=== PATIENT | female | born 2000 | race Caucasian/White ===

== ENCOUNTER 2020-05-17 18:09 | Emergency (ER) | payer OTHER, SELFPAY ==
[2020-05-17 18:19] VITALS: BP 136/81; PULSE 71; RESP 16; TEMP 36.9; O2SAT 98; BMI 25.9
--- NOTE | 2020-05-17 18:43 | DI.US.S_ITS ---
PROCEDURE: US OB <= 14 WEEKS FETUS INDICATIONS: 6 weeks OUTSIDE/PRIOR DATING DATA: First dating scan (date and location): 05/17/20, current study . Estimated date of delivery (TOMAS) from first dating scan: 01/07/21 . TECHNIQUE: Real-time scanning was performed of the fetus and maternal pelvic organs, with image documentation. COMPARISON: None. FINDINGS: Embryo: An intrauterine is present including a single pole with an average crown-rump length of 6.1 mm corresponding to a six week three day plus or minus four days gestation. There is detectable cardiac activity in the fetus at a rate of 109 beats per minute. A normal yolk sac is present. Measurement variability in dating: +/- 4 weeks by LMP, +/- 7 days by mean sac diameter (use before 6 weeks gestation if crown-rump length not able to be measured), +/- 5 days by crown-rump length (up to 8 weeks 6 days gestation), +/- 7 days by crown-rump length (up to 13 weeks 6 days gestation). Maternal organs: The uterus is anteverted and the cervix is grossly closed. There is an intrauterine gestational sac with a moderate decidual response. No subchorionic hemorrhage is visible. There is a probable corpus luteum on the left ovary. No free pelvic fluid. IMPRESSION: 1. Single live intrauterine with a gestational age by today's crown-rump length of six weeks, three days, and estimated due date of 01/07/21. 2. Slightly low heart rate is likely secondary to early gestational age. Clinical and possibly imaging follow up to confirm viability is recommended. Dictated by: Stephanie Meredith M.D. on 05/17/2020 at 22:12 Approved by: Stephanie Meredith M.D. on 05/17/2020 at 22:16
--- NOTE | 2020-05-17 19:39 | ED.PREGNANCY ---
HPI - General Chief complaint: OB/Uterine Contractions Stated complaint: 6wks , bleeding and cramping Time Seen by Provider: 05/17/20 18:43 Source: patient Mode of arrival: Ambulatory Limitations: no limitations History of Present Illness HPI Narrative: Patient is a 19-year-old female presenting about 6 weeks with vaginal bleeding and spotting. She said just prior to her arrival she went to the restroom and wipes twice a noticed some pink spotting. In the emergency department she had a little bit more bleeding and some cramping. She has been nauseated in taking vitamin B. She has not yet been seen by OB. She denies any dizziness or lightheadedness. She states she and her were trying and this is a welcomed . Last menstrual period April 04 2020 Complaint: vaginal bleeding Onset (ago): hour(s) Related Data Allergies Allergy/AdvReac Type Severity Reaction Status Date / Time Sulfa (Sulfonamide Allergy Verified 05/17/20 18:19 Antibiotics) Review of Systems Review of Systems Narrative: GENERAL: Denies chills, fatigue, malaise, fever, sweats, travel HEENT: Denies sinus pain, ear pain, sore throat, difficulty swallowing, neck pain RESPIRATORY: Denies dyspnea, cough, wheezing, hemoptysis, sputum. CARDIOVASCULAR: Denies chest pain, palpitations, orthopnea, edema GASTROINTESTINAL: Denies nausea, vomiting, abdominal pain, diarrhea, constipation, melena. [employer] WORKER: See HPI : Denies dysuria, frequency, incontinence, hematuria, urinary retention, flank pain. MUSCULOSKELETAL: Denies weakness, joint pain, or bony pain SKIN: No rash, no erythema, no pruritus NEUROLOGIC: Denies weakness, dizziness, headache, numbness, change in speech, confusion PSYCHIATRIC: No concerning psychosocial issues. 12 point review of systems is negative except for those stated above and HPI PMFSH - Past Medical History Medical history: Reports no medical history Surgical history: Reports no surgical history SENIOR IOS DEVELOPER history: Reports No SENIOR IOS DEVELOPER History Exam Initial Vital Signs Initial Vital Signs: Vital Signs Temperature 98.5 F 05/17/20 18:19 Pulse Rate 71 05/17/20 18:19 Respiratory Rate 16 05/17/20 18:19 Blood Pressure 136/81 05/17/20 18:19 Pulse Oximetry 98 02/11/21 18:19 GENERAL: Well-appearing, well-nourished and in no acute distress. HEENT: Head atraumatic,EOMI, pupils reactive, face symmetric, moist mucous membranes CARDIOVASCULAR: Regular rate and rhythm without murmurs, rubs or gallops. RESPIRATORY: Breath sounds equal bilaterally, no wheezes rales or rhonchi. ABDOMEN: Soft, minimal suprapubic pain Normoactive bowel sounds all 4 quadrants. No guarding or rebound. EXTREMITIES: Normal range of motion, no clubbing or edema. Neurovascularly intact NEUROLOGICAL: Alert and oriented x4.Normal gait and speech. Cranial nerves II through XII grossly intact. SKIN: Warm, dry, no laceration, no petechiae, no rashes or lesions. Course Orders Ordered: ED Orders 05/17/20 18:43 US pelvic complete Stat 05/17/20 19:45 ABO RH Type Stat Complete Blood Count AUTO DIFF Stat Comprehensive Metabolic Panel Stat HCG Quantitative /Beta subunit Stat Discontinued Medications Acetaminophen (Acetaminophen 325 Mg Tablet) 975 mg PO NOW ONE Stop: 05/17/20 19:45 Last Admin: 05/17/20 19:49 Dose: 975 mg Documented by: [facility] Vital Signs Vital signs: Vital Signs - 8 hr 05/17/20 18:19 05/17/20 21:58 Temperature 98.5 F Pulse Rate 71 59 L Respiratory Rate 16 Blood Pressure 136/81 127/78 Pulse Oximetry 98 99 MDM - OB/Uterine Contractions Lab Data Attestation: I reviewed the patient's lab results. Result diagrams: 05/17/20 19:45 05/17/20 19:45 Labs: Lab Results 05/17/20 05/17/20 05/17/20 Range/Units 19:45 19:45 19:45 WBC 10.0 (4.5-11.0) X10^3/uL RBC 4.97 (4.0-5.2) X10^6/uL Hgb 13.5 (12.0-16.0) g/dL Hct 41.9 (36-46) % MCV 84.4 (80-100) fL MCH 27.2 (26-34) PG MCHC 32.2 (30-36) % RDW 13.4 (11.6-14.8) % Plt Count 273 (150-400) X10^3/uL Neut % (Auto) 65.7 (50-75) % Lymph % (Auto) 22.5 L (25-40) % [place] % (Auto) 8.6 (3-14) % Eos % (Auto) 2.7 (2-4) % Baso % (Auto) 0.5 (0-2) % Neut # (Auto) 6600 (5697-7099) /uL Lymph # (Auto) 2300 (4846-4427) /uL [place] # (Auto) 900 (0-900) /uL Eos # (Auto) 300 (0-450) /uL Baso # (Auto) 100 (0-100) /uL Sodium 136 L (137-145) mmol/L Potassium 4.1 (3.4-5.1) mmol/L Chloride 102 (98-107) mmol/L Carbon Dioxide 28 (22-32) mmol/L BUN 7 (7-17) mg/dL Creatinine 0.48 L (0.52-1.04) mg/dL Estimated GFR > 60.0 (>60) mL/min BUN/Creatinine Ratio 14.6 (6-22) Glucose 85 (70-100) mg/dL Calcium 9.5 (8.4-10.2) mg/dL Total Bilirubin 0.4 (0.2-1.3) mg/dL AST 35 (14-36) IU/L ALT 49 H (<35) IU/L Alkaline Phosphatase 54 (38-126) U/L Total Protein 8.0 (6.3-8.2) g/dL Albumin 4.7 (3.5-5.0) g/dL Globulin 3.3 (1.7-4.1) g/dL Albumin/Globulin Ratio 1.4 (1.0-2.8) HCG, Quant 71575 mIU/mL Blood Type O Positive Point of Care Testing Test Results Positive Urine Dip Bedside Urine Glucose Negative Bedside Urine Bilirubin - Negative Bedside Urine Ketone - Negative Urine Specific [place] 1.015 Bedside Urine Occult Blood ++ Bedside Urine pH 6.0 Bedside Urine Protein - Negative Bedside Urine Urobilinogen - Negative Bedside Urine Nitrite - Negative Bedside Urine Leukocytes - Negative Esterase Imaging Data US - OB: Radiologist's Impression: PROCEDURE: US OB <= 14 WEEKS FETUS INDICATIONS: 6 weeks OUTSIDE/PRIOR DATING DATA: First dating scan (date and location): 05/17/20, current study . Estimated date of delivery (TOMAS) from first dating scan: 01/07/21 . TECHNIQUE: Real-time scanning was performed of the fetus and maternal pelvic organs, with image documentation. COMPARISON: None. FINDINGS: Embryo: An intrauterine is present including a single pole with an average crown-rump length of 6.1 mm corresponding to a six week three day plus or minus four days gestation. There is detectable cardiac activity in the fetus at a rate of 109 beats per minute. A normal yolk sac is present. Measurement variability in dating: +/- 4 weeks by LMP, +/- 7 days by mean sac diameter (use before 6 weeks gestation if crown-rump length not able to be measured), +/- 5 days by crown-rump length (up to 8 weeks 6 days gestation), +/- 7 days by crown-rump length (up to 13 weeks 6 days gestation). Maternal organs: The uterus is anteverted and the cervix is grossly closed. There is an intrauterine gestational sac with a moderate decidual response. No subchorionic hemorrhage is visible. There is a probable corpus luteum on the left ovary. No free pelvic fluid. IMPRESSION: 1. Single live intrauterine with a gestational age by today's crown-rump length of six weeks, three days, and estimated due date of 01/07/21. 2. Slightly low heart rate is likely secondary to early gestational age. Clinical and possibly imaging follow up to confirm viability is recommended. Dictated by: Stephanie Meredith M.D. on 05/17/2020 at 22:12 Approved by: Stephanie Meredith M.D. on 05/17/2020 at 22:16 [facility] Narrative Medical decision making narrative: Patient is having some mild cramping giving Tylenol for pain. She had some light bleeding and spotting which nursing saw while in the ED. She had a very small blood clot noted. Live IUP is found ultrasound. HCG correlates. Precautions given. Discharge Plan Departure Patient Disposition: Home Clinical Impression: , threatened Instructions: Early Bleeding Activity Restrictions/Additional Instructions: [id number] *You have been diagnosed with threatened *What to do: At this time baby looks healthy. Recommend pelvic rest, nothing in her out of vagina until you are seen by OB and bleeding has stopped. You do need to have your blood work rechecked in 48 hours to be sure that it is going. Please call OB, or even the base to have this scheduled *Continue to take medications as directed *Follow up with your primary care provider in 2-3 days *Return to ER if you should have increasing bleeding, pain or any new, worsening or concerning symptoms Referrals: [facility] [Provider Group] [facility] SENIOR IOS DEVELOPER [Provider Group]
[2020-05-17] MEDS: ACETAMINOPHEN 325 MG TABLET 975 MG PO (19:49)
[2020-05-17 19:54] LABS: Add Manual Diff / Slide Review NO; Basophils Absolute Auto 100 /uL (0-100); Basophils Percent Auto 0.5 % (0-2); Eosinophils Absolute Auto 300 /uL (0-450); Eosinophils Percent Auto 2.7 % (2-4); Hematocrit 41.9 % (36-46); Hemoglobin 13.5 g/dL (12.0-16.0); Lymphocytes Absolute Auto 2300 /uL (1100-4500); Lymphocytes Percent Auto 22.5 % (25-40); Mean Corpuscular HGB Conc 32.2 % (30-36); Mean Corpuscular Hemoglobin 27.2 PG (26-34); Mean Corpuscular Volume 84.4 fL (80-100); Monocytes Absolute Auto 900 /uL (0-900); Monocytes Percent Auto 8.6 % (3-14); Neutrophils Absolute Auto 6600 /uL (1500-7000); Neutrophils Percent Auto 65.7 % (50-75); Platelet Count 273 X10^3/uL (150-400); Red Blood Cell Count 4.97 X10^6/uL (4.0-5.2); Red Cell Distribution Width 13.4 % (11.6-14.8)
[2020-05-17 20:06] LABS: Alanine Aminotransferase 49 IU/L (<35); Albumin 4.7 g/dL (3.5-5.0); Albumin Globulin Ratio 1.4 (1.0-2.8); Alkaline Phosphatase 54 U/L (38-126); Aspartate Aminotransferase 35 IU/L (14-36); BUN Creatinine Ratio 14.6 (6-22); Bilirubin Total 0.4 mg/dL (0.2-1.3); Blood Urea Nitrogen 7 mg/dL (7-17); Calcium 9.5 mg/dL (8.4-10.2); Carbon Dioxide 28 mmol/L (22-32); Chloride 102 mmol/L (98-107); Estimated Glomerular Filt Rate > 60.0 mL/min (>60); Globulin 3.3 g/dL (1.7-4.1); Glucose 85 mg/dL (70-100); HEMOLYSIS < 15 (0-50); Potassium 4.1 mmol/L (3.4-5.1); Sodium 136 mmol/L (137-145)
[2020-05-17 20:48] LABS: HCG Quantitative /Beta subunit 47559 mIU/mL
[2020-05-17 21:58] VITALS: BP 127/78; PULSE 59; O2SAT 99
== END 2020-05-17 22:02 | disposition home or self-care (01) ==
PROVIDERS: Emergency Provider Emergency Medicine
DX: O20.0 Threatened abortion (principal); Z3A.01 Less than 8 weeks gestation of pregnancy
CPT/HCPCS: 36415; 76830; 76856; 80053; 81003; 81025; 84702; 85025; 86900; 86901; 99282; 99284

== ENCOUNTER → 2020-06-08 14:31 | Outpatient (CLI) | payer OTHER, SELFPAY ==
[2020-06-08 15:39] LABS: Appearance Urine UA CLEAR; Bilirubin Urine UA NEGATIVE (NEGATIVE); Color Urine UA YELLOW; Glucose Urine UA NEGATIVE (Negative); Ketones Urine UA NEGATIVE (NEGATIVE); Leukocyte Esterase Urine UA NEGATIVE (NEGATIVE); Nitrite Urine UA NEGATIVE (Negative); Occult Blood Urine UA NEGATIVE (Negative); Protein Urine UA NEGATIVE (Negative); Specific Gravity Urine UA 1.025 (1.000-1.035); Urobilinogen Urine UA 0.2 E.U./dL (0.2)
[2020-06-08 15:42] LABS: Add Manual Diff / Slide Review NO; Basophils Absolute Auto 0 /uL (0-100); Basophils Percent Auto 0.2 % (0-2); Eosinophils Absolute Auto 200 /uL (0-450); Hematocrit 42.2 % (36-46); Hemoglobin 14.1 g/dL (12.0-16.0); Lymphocytes Absolute Auto 2500 /uL (1100-4500); Lymphocytes Percent Auto 20.6 % (25-40); Mean Corpuscular HGB Conc 33.5 % (30-36); Mean Corpuscular Hemoglobin 27.8 PG (26-34); Monocytes Absolute Auto 600 /uL (0-900); Monocytes Percent Auto 5.4 % (3-14); Neutrophils Absolute Auto 8600 /uL (1500-7000); Neutrophils Percent Auto 71.8 % (50-75); Platelet Count 268 X10^3/uL (150-400); Red Blood Cell Count 5.08 X10^6/uL (4.0-5.2); Red Cell Distribution Width 13.7 % (11.6-14.8)
[2020-06-08 19:47] LABS: Hepatitis B Surface Antigen NEGATIVE s/c (NEGATIVE); Rubella Antibody IgG 33.1 IU/mL (>15)
[2020-06-08 19:59] LABS: HIV 1 & 2 Ab/Ag 4th Gen Combo NEGATIVE (NEGATIVE); Hep C Virus Ab w/Reflex Quant NEGATIVE s/c (NEGATIVE)
[2020-06-09 05:11] LABS: RPR Screen Non Reactive (Non Reactive)
[2020-06-09 09:41] LABS: Varicella IgG Antibody 348 index (Immune >165)
== END ==
PROVIDERS: Referring Provider Family Medicine; Visit Provider Family Medicine
DX: O20.0 Threatened abortion (principal)
CPT/HCPCS: 36415; 80055; 81003; 86787; 86803; 86850; 86900; 86901; 87086; 87389

== ENCOUNTER → 2020-08-01 12:55 | Outpatient (CLI) | payer OTHER, SELFPAY ==
[2020-08-03 20:22] LABS: AFP, Serum 35.6 ng/mL (.); Calc Gestational Age EDD (.); Estriol, Free 0.84 ng/mL (.); Inhibin A, Dimeric 78.27 pg/mL (.); Inhibin A, MoM 0.56 (.); Maternal Ethnicity Caucasian (.); Maternal Weight 178 lbs (.); Number of Fetuses No (.); OSBR Risk 1 IN 10000 (.); Results Report (.); Test Results *Screen Negative* (.); hCG, MoM 0.54 (.); hCG, Serum 15891 mIU/mL (.)
== END ==
PROVIDERS: Referring Provider Family Medicine; Visit Provider Family Medicine
DX: Z34.90 Encounter for supervision of normal pregnancy, unspecified, unspecified trimester (principal)
CPT/HCPCS: 36415; 82105; 82677; 84702; 86336

== ENCOUNTER → 2020-08-13 10:36 | Outpatient (CLI) | payer OTHER, SELFPAY ==
--- NOTE | 2020-08-13 10:38 | DI.US.S_ITS ---
PROCEDURE: US OB >= 14 WEEKS FETUS INDICATIONS: anatomy screening OUTSIDE/PRIOR DATING DATA: Last menstrual period (LMP): Unknown . LMP-based estimated date of delivery (TOMAS): Unknown . First dating scan (date and location): To 1121 . Estimated date of delivery (TOMAS) from first dating scan: 01/07/21 . TECHNIQUE: Real-time scanning was performed of the fetus, with image documentation and biometric measurements. Endovaginal scanning: Not performed COMPARISON: [facility], OB <= 14 WEEKS FETUS, 05/17/2020, 19:10. FINDINGS: General: A single living intrauterine gestation is present. Presentation: Variable. Placenta: Placental position is posterior , without previa. Amniotic fluid index: 12.0 cm, normal range is 5-24 cm. Largest pocket 3.5 cm heart rate: 140 beats per minute. Maternal cervical canal: 3.0 cm long. Normal lower limit is 2.5 cm. biometrics: Biparietal diameter: 4.3 cm, 18 weeks 6 days Head circumference: 16.0 cm, 18 weeks 6 days Abdominal circumference: 13.9 cm, 19 weeks 2 days Femur length: 2.8 cm, 18 weeks 4 days Estimated gestational age from initial scan: 19 weeks 0 days Composite gestational age from present scan: 18 weeks 6 days Estimated weight and percentile: 266 g, 42nd percentile Measurement variability for biometric dating: +/- 7 days from 14 weeks to 15 weeks 6 days gestation, +/- 10 days from 16 weeks to 21 weeks 6 days gestation, +/- 2 weeks from 22 weeks to 27 weeks 6 days gestation, +/- 3 weeks for 28 weeks gestation or later. weight reference: 4500 g or EFW >90/95% is considered macrosomia or large for gestational age. EFW <10% is small for gestational age. EFW 5% or less is considered intra-uterine growth restriction. Anatomic survey: Neuro: Ventricles are non-dilated at less than 10 mm. Cisterna magna is normal at 3-11 mm. Cerebellum is normal in size and morphology. Nuchal skin fold: Normal at less than 6 mm between 14-21 weeks gestational age. Face: Nose and lips, facial profile are normal. Spine: No evidence for spina bifida. Heart: 4-chambered heart is present, with normal ventricular outflow tracts. Diaphragm: Diaphragm is intact. Stomach: Left-sided stomach is present. Kidneys: No hydronephrosis. Normal is less than 5 mm in 2nd trimester, less than 7 mm in 3rd trimester. Cord: 3-vessel cord has orthotopic insertion. Bladder: Normal in size. Extremities: All 4 extremities identified. IMPRESSION: Single living intrauterine fetus in variable presentation. Expected interval growth Normal anatomic survey Dictated by: Pritesh Fall M.D. on 08/13/2020 at 17:16 Approved by: Pritesh Fall M.D. on 08/13/2020 at 17:19
== END ==
PROVIDERS: Referring Provider Family Medicine; Visit Provider Family Medicine
DX: Z34.92 Encounter for supervision of normal pregnancy, unspecified, second trimester; Z3A.18 18 weeks gestation of pregnancy
CPT/HCPCS: 76811

== ENCOUNTER 2020-10-16 19:50 | Emergency (ER) | payer OTHER, SELFPAY ==
[2020-10-16 19:54] VITALS: BP 134/81; PULSE 70; RESP 18; TEMP 36.5; O2SAT 99
--- NOTE | 2020-10-16 20:29 | DI.US.S_ITS ---
PROCEDURE: US OB LIMITED INDICATIONS: WELL-BEING PRE PSYCH ADMISSION OUTSIDE/PRIOR DATING DATA: Last menstrual period (LMP): Unknown. LMP-based estimated date of delivery (TOMAS): Not applicable. First dating scan (date and location): May 17, 2020 . Estimated date of delivery (TOMAS) from first dating scan: January 07, 2021 . TECHNIQUE: Real-time scanning was performed of the fetus, with image documentation and biometric measurements. Endovaginal scanning: Not performed COMPARISON: None. FINDINGS: General: A single living intrauterine gestation is present. Presentation: Vertex. Placenta: Placental position is posterior , without previa. Amniotic fluid index: 16.4 cm, normal range is 5-24 cm. heart rate: 133 beats per minute. Maternal cervical canal: 3.4 cm long. Normal lower limit is 2.5 cm. biometrics: Biparietal diameter: 7.4 cm, correlating with 29 weeks and 4 days Head circumference: 26.4 cm, correlating with 28 weeks and 5 days Abdominal circumference: 24.6 cm, correlating with 28 weeks and 6 days Femur length: 5.4 cm, correlating with 28 weeks and 4 days Estimated gestational age from initial scan: 28 weeks and 0 1 day. Composite gestational age from present scan: 29 weeks and 0 days Estimated weight and percentile: 1002 184 g which correlates with the 63rd percentile based off gestational age. Measurement variability for biometric dating: +/- 7 days from 14 weeks to 15 weeks 6 days gestation, +/- 10 days from 16 weeks to 21 weeks 6 days gestation, +/- 2 weeks from 22 weeks to 27 weeks 6 days gestation, +/- 3 weeks for 28 weeks gestation or later. weight reference: 4500 g or EFW >90/95% is considered macrosomia or large for gestational age. EFW <10% is small for gestational age. EFW 5% or less is considered intra-uterine growth restriction. Other: Not applicable. IMPRESSION: Single living intrauterine gestation with estimated sonographic gestational age of approximately 29 weeks and 0 days. Expected interval growth has occurred. No significant discrepancy with the night nurse radiology preliminary report. Dictated by: Alvin Montiel M.D. on 10/17/2020 at 7:18 Approved by: Alvin Montiel M.D. on 10/17/2020 at 7:21
[2020-10-16 21:00] LABS: Add Manual Diff / Slide Review NO; Basophils Absolute Auto 100 /uL (0-100); Basophils Percent Auto 0.4 % (0-2); Eosinophils Absolute Auto 200 /uL (0-450); Eosinophils Percent Auto 1.8 % (2-4); Hematocrit 35.5 % (36-46); Hemoglobin 11.7 g/dL (12.0-16.0); Lymphocytes Absolute Auto 2200 /uL (1100-4500); Lymphocytes Percent Auto 17.9 % (25-40); Mean Corpuscular Hemoglobin 27.9 PG (26-34); Mean Corpuscular Volume 84.5 fL (80-100); Monocytes Absolute Auto 600 /uL (0-900); Monocytes Percent Auto 4.9 % (3-14); Neutrophils Absolute Auto 9300 /uL (1500-7000); Platelet Count 268 X10^3/uL (150-400); Red Blood Cell Count 4.21 X10^6/uL (4.0-5.2); Red Cell Distribution Width 13.2 % (11.6-14.8); White Blood Cell Count 12.4 X10^3/uL (4.5-11.0)
[2020-10-16 21:13] LABS: Alanine Aminotransferase 18 IU/L (<35); Albumin 3.9 g/dL (3.5-5.0); Albumin Globulin Ratio 1.3 (1.0-2.8); Alkaline Phosphatase 97 U/L (38-126); Aspartate Aminotransferase 23 IU/L (14-36); BUN Creatinine Ratio 14.7 (6-22); Bilirubin Total 0.2 mg/dL (0.2-1.3); Blood Urea Nitrogen 5 mg/dL (7-17); Calcium 9.2 mg/dL (8.4-10.2); Carbon Dioxide 22 mmol/L (22-32); Chloride 108 mmol/L (98-107); Estimated Glomerular Filt Rate > 60.0 mL/min (>60); Ethanol (ETOH) < 10 mg/dL; Globulin 3.1 g/dL (1.7-4.1); Glucose 88 mg/dL (70-100); HEMOLYSIS < 15 (0-50); Potassium 3.8 mmol/L (3.4-5.1); Sodium 137 mmol/L (137-145)
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
[2020-10-16 21:24] LABS: COVID19 -Nasal RAPID Negative (Negative)
[2020-10-16 21:28] LABS: UR Morphine/Opiate cutoff 300 Negative (Negative); Ur Creatinine Normal (Normal); Ur Specific Gravity Normal (Normal); Urine Amphetamines Negative (Negative); Urine Barbiturates Negative (Negative); Urine Benzodiazepines Negative (Negative); Urine Cocaine Negative (Negative); Urine MDMA Negative (Negative); Urine Methadone Negative (Negative); Urine Methamphetamines Negative (Negative); Urine Oxycodone Negative (Negative); Urine Phencyclidine Negative (Negative); Urine Tetrahydrocannabinol Negative (Negative); Urine Tricyclic Antidepressant Negative (Negative); Urine pH Normal (Normal)
[2020-10-16 21:29] LABS: HCG Quantitative /Beta subunit 3099.8 mIU/mL
--- NOTE | 2020-10-16 21:30 | CM.SWNOTE ---
VICE INVESTIGATOR Note VICE INVESTIGATOR calls OBGYN Dr. Rivera and informs MD of patient's encounter at this ED and need to reschedule appt on 10/19/20, VICE INVESTIGATOR leaves . VICE INVESTIGATOR calls [facility] and they indicate that they have inpatient bed for patient. Plan: Patient to transfer to voluntary behavioral health inpatient bed at [facility]. JOSE Gambino
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
--- NOTE | 2020-10-17 07:40 | PC.NURSE ---
I woke patient up for signing transfer consent. She ambulated to the bathroom, changed in room and I brought snacks and ice water. Pt is calm and transport will arrive shortly
== END 2020-10-17 07:44 ==
PROVIDERS: Emergency Provider Emergency Medicine
DX: O26.893 Other specified pregnancy related conditions, third trimester (principal); R45.851 Suicidal ideations; F32.9 Major depressive disorder, single episode, unspecified; Z20.822 Contact with and (suspected) exposure to COVID-19; Z3A.29 29 weeks gestation of pregnancy
CPT/HCPCS: 76815; 80053; 80305; 80320; 81003; 84702; 85025; 87635; 93005; 93010; 99284; C9803

== ENCOUNTER 2020-12-09 18:30 | Outpatient (CLI) | payer OTHER, SELFPAY ==
[2020-12-09 19:48] LABS: Bacteria Urine None Seen; RBC Urine None Seen (0-5/HPF)
[2020-12-09 19:54] LABS: Appearance Urine UA CLEAR; Bilirubin Urine UA NEGATIVE (NEGATIVE); Color Urine UA YELLOW; Glucose Urine UA NEGATIVE (Negative); Ketones Urine UA NEGATIVE (NEGATIVE); Leukocyte Esterase Urine UA NEGATIVE (NEGATIVE); Nitrite Urine UA NEGATIVE (Negative); Occult Blood Urine UA NEGATIVE (Negative); Protein Urine UA NEGATIVE (Negative); Specific Gravity Urine UA 1.015 (1.000-1.035); Urobilinogen Urine UA 0.2 E.U./dL (0.2)
[2020-12-09 19:56] LABS: pH Urine UA 6.5 (4.5-8.0)
[2020-12-09 20:08] LABS: Amorphous Sediment Urine 1+; Culture Indicated Urine Cult Not Indicated; Renal Epithelial Cells Urine 0-1/HPF (0-1/HPF); Squamous Epithelial Cell Urine 0-1 /HPF (0-5/HPF); WBC Urine 0-1/HPF (0-5/HPF)
--- NOTE | 2020-12-09 20:25 | PM.OBTRLD ---
Visit Information Visit Information Date of evaluation: 12/09/20 Primary OB Provider: Ericka Rivera On-call OB Provider: Ashley Mendez Reason for Evaluation: Yes non-stress test non-stress test reason: other (episode of dizziness, suprapubic pain) Comments/Additional reasons for admission: 20 year olf at 35 weeks gestation with complaints of an episode of dizziness earlier in the day and suprapubic pain. Dizziness has not recurred. Denies contractions, leaking or bleeding and reports good FM. Vital Signs Vital Signs: T 36.0 BP 124/60 P 86 PFSH Medical History Seasonal allergies (~2018) Swimmer's ear (~2005) Traumatic rupture of left ear drum, initial encounter (~2018) Surgical History [place] teeth extracted (~2017) Family History Mother [place] disease Raynauds disease Father No problems noted. 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 ) butch/episcopal: Non-jehovah's witness special butch needs: No seatbelt use: always do you feel safe at home: No Smoking Status: Never smoker second hand exposure: No alcohol intake: never substance use type: does not use during the past year weight has: remained stable well-balanced diet: daily or most days daily servings fruits/ve-4 caffeine: Yes (1 cup a day. ) eating out: rarely or never Type(s) of exercise: walking and regular exercise frequency: daily duration: 30-45 minutes/day Objective Labs Labs: Laboratory Results - last 24 hr 12/09/20 19:25 Urine Color Yellow Urine Appearance Clear Urine pH 6.5 Ur Specific [place] 1.015 Urine Protein Negative Urine Glucose (UA) Negative Urine Ketones Negative Urine Occult Blood Negative Urine Nitrate Negative Urine Bilirubin Negative Urine Urobilinogen 0.2 Ur Leukocyte Esterase Negative Urine RBC None seen Urine WBC 0-1/hpf Ur Squamous Epith Cells 0-1 /hpf Ur Renal Epithelial Cell 0-1/hpf Amorphous Sediment 1+ Urine Bacteria None seen Ur Culture Indicated? Cult not indicated Evaluation Evaluation Baseline heart rate: 150 Variability: Moderate (11-25) monitor accelerations: Present Monitor Decelerations: Absent Category of Tracing: Reactive Diagnosis, Plan/Disposition Final Diagnosis (1) 35 weeks gestation of : Status: Acute Plan/Disposition Plan: Reactive NST. UA negative. Follow up with Dr. Rivera as scheduled. OB Disposition: home
== END 2020-12-09 20:22 | disposition home or self-care (01) ==
LOC: LABOR 18:34 → OB 12-11 12:01
PROVIDERS: Referring Provider Family Medicine; Visit Provider Family Medicine
DX: O26.893 Other specified pregnancy related conditions, third trimester (principal); R10.2 Pelvic and perineal pain; R42 Dizziness and giddiness; Z3A.35 35 weeks gestation of pregnancy
CPT/HCPCS: 59025; 81001; G0378; G0379

== ENCOUNTER → 2020-12-14 15:32 | Outpatient (CLI) | payer OTHER, SELFPAY ==
[2020-12-15 11:08] LABS: Strep Grp B PCR NEG for Grp B Strep
== END ==
PROVIDERS: Visit Provider Family Medicine
DX: Z34.90 Encounter for supervision of normal pregnancy, unspecified, unspecified trimester (principal); Z3A.35 35 weeks gestation of pregnancy
CPT/HCPCS: 87653

== ENCOUNTER 2020-12-27 10:24 | Outpatient (CLI) | payer OTHER, SELFPAY ==
--- NOTE | 2020-12-27 11:44 | PM.OBTRLD ---
Visit Information Visit Information Date of evaluation: 12/27/20 Primary OB Provider: Ericka Rivera Reason for Evaluation: Yes non-stress test non-stress test reason: decreased movement Comments/Additional reasons for admission: 20yo at 38w1d here due to decreased movement. She has not felt her baby move much this morning. No contractions, LOF, vaginal bleeding. [facility] Medical History Seasonal allergies (~2018) Swimmer's ear (~2005) Traumatic rupture of left ear drum, initial encounter (~2018) Surgical History [place] teeth extracted (~2017) Family History Mother [place] disease Raynauds disease Father No problems noted. 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 ) butch/taoism: Non-alevism special butch needs: No seatbelt use: always do you feel safe at home: No Smoking Status: Never smoker second hand exposure: No alcohol intake: never substance use type: does not use during the past year weight has: remained stable well-balanced diet: daily or most days daily servings fruits/ve-4 caffeine: Yes (1 cup a day. ) eating out: rarely or never Type(s) of exercise: walking and regular exercise frequency: daily duration: 30-45 minutes/day Evaluation Evaluation Baseline heart rate: 130 Variability: Moderate (11-25) monitor accelerations: Present Monitor Decelerations: Absent Category of Tracing: Reactive Diagnosis, Plan/Disposition Final Diagnosis (1) 38 weeks gestation of : Status: Acute (2) Decreased movement: Status: Acute Plan/Disposition Plan: 20yo at 38w1d here for decreased movement. Reactive NST, feeling baby move more often. Safe for d/c home. OB Disposition: home
== END 2020-12-27 11:10 | disposition home or self-care (01) ==
LOC: OB 01-02 07:13
PROVIDERS: Referring Provider Family Medicine; Visit Provider Family Medicine
DX: O36.8130 Decreased fetal movements, third trimester, not applicable or unspecified (principal); Z3A.38 38 weeks gestation of pregnancy
CPT/HCPCS: 59025; G0378; G0379

== ENCOUNTER 2021-01-05 20:06 | Outpatient (CLI) | payer OTHER, SELFPAY ==
--- NOTE | 2021-01-05 20:38 | PM.OBTRLD ---
Visit Information Visit Information Date of evaluation: 01/05/21 Primary OB Provider: Ericka Rivera On-call OB Provider: Ashley Mendez Reason for Evaluation: Yes rupture of membranes Comments/Additional reasons for admission: 20 year old at 39 weeks and 3 days with possible ROM this evening. Denies bleeding, unsure of contractions but she thinks so. Good FM. Vital Signs Vital Signs: T 35.7 BP 142/81 P 88 Repeat BP 136/82 P 80 PFSH Medical History Seasonal allergies (~2018) Swimmer's ear (~2005) Traumatic rupture of left ear drum, initial encounter (~2018) Surgical History [place] teeth extracted (~2017) Family History Mother [place] disease Raynauds disease Father No problems noted. 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 ) butch/zoroastrian: Non-restoration special butch needs: No seatbelt use: always do you feel safe at home: No Smoking Status: Never smoker second hand exposure: No alcohol intake: never substance use type: does not use during the past year weight has: remained stable well-balanced diet: daily or most days daily servings fruits/ve-4 caffeine: Yes (1 cup a day. ) eating out: rarely or never Type(s) of exercise: walking and regular exercise frequency: daily duration: 30-45 minutes/day Evaluation Evaluation Baseline heart rate: 140 Variability: Moderate (11-25) monitor accelerations: Present Monitor Decelerations: Absent Category of Tracing: Reactive Non-invasive Membranes Rupture Test: negative Diagnosis, Plan/Disposition Final Diagnosis (1) 39 weeks gestation of : Status: Acute Plan/Disposition Plan: Amnisure negative. NST reactive. Follow up in clinic with Dr. Rivera as scheduled. OB Disposition: home
== END 2021-01-05 20:52 | disposition home or self-care (01) ==
LOC: OB 01-15 03:08
PROVIDERS: Referring Provider Family Medicine; Visit Provider Family Medicine
DX: Z03.71 Encounter for suspected problem with amniotic cavity and membrane ruled out (principal); O47.1 False labor at or after 37 completed weeks of gestation; Z3A.39 39 weeks gestation of pregnancy
CPT/HCPCS: 59025; 84112; G0378; G0379

== ENCOUNTER 2021-01-10 23:16 | Outpatient (CLI) | payer OTHER, SELFPAY ==
[2021-01-11] MEDS: MORPHINE 10 MG/ML INJ IM (00:14)
[2021-01-11] MEDS: hydrOXYzine 50 MG/ML INJ 25 MG IM (00:15)
== END 2021-01-11 00:33 | disposition home or self-care (01) ==
LOC: OB 02-05 01:33
PROVIDERS: Referring Provider Family Medicine; Visit Provider Family Medicine
DX: O48.0 Post-term pregnancy (principal); Z3A.40 40 weeks gestation of pregnancy
CPT/HCPCS: 59025; G0378; G0379; J2270; J3410

== ENCOUNTER 2021-01-11 05:48 | Inpatient (IN) | payer OTHER, SELFPAY ==
[2021-01-11] MEDS: LACTATED RINGERS 1,000 ML 100 ML IV ×3 (06:28→10:52)
[2021-01-11 06:41] LABS: Add Manual Diff / Slide Review NO; Basophils Absolute Auto 100 /uL (0-100); Basophils Percent Auto 0.8 % (0-2); Eosinophils Absolute Auto 200 /uL (0-450); Eosinophils Percent Auto 1.4 % (2-4); Hematocrit 35.4 % (36-46); Hemoglobin 10.8 g/dL (12.0-16.0); Lymphocytes Absolute Auto 1700 /uL (1100-4500); Lymphocytes Percent Auto 13.2 % (25-40); Mean Corpuscular HGB Conc 30.6 % (30-36); Mean Corpuscular Hemoglobin 24.8 PG (26-34); Mean Corpuscular Volume 81.1 fL (80-100); Monocytes Absolute Auto 800 /uL (0-900); Monocytes Percent Auto 6.3 % (3-14); Neutrophils Absolute Auto 10300 /uL (1500-7000); Neutrophils Percent Auto 78.3 % (50-75); Platelet Count 276 X10^3/uL (150-400); Red Blood Cell Count 4.36 X10^6/uL (4.0-5.2); Red Cell Distribution Width 16.7 % (11.6-14.8); White Blood Cell Count 13.2 X10^3/uL (4.5-11.0)
[2021-01-11 07:33] LABS: COVID19 - ADMIT (NP swab/PCR) Negative (Negative)
[2021-01-11 08:34] VITALS: BP 136/65
[2021-01-11] MEDS: OXYTOCIN PREMIX 30 UNIT/500 ML PLAST..BAG IV (13:08)
[2021-01-11 13:51] LABS: Protein (Total) Urine Random 18 mg/dL (0-12); Protein Creatinine Ratio Urine 0.18 GRAM/24H
[2021-01-11] MEDS: DERMOPLAST SPRAY 20% 60 ML 1 SPRAY TOP (15:13)
[2021-01-11] MEDS: IBUPROFEN 600 MG TABLET PO ×2 (15:14→22:00)
[2021-01-11] MEDS: ACETAMINOPHEN 325 MG TABLET 650 MG PO ×2 (15:14→22:00)
--- NOTE | 2021-01-11 16:37 | PM.OBHP.1 ---
OB HPI Date/Time Date of admission: 01/11/21 Date Patient Seen: 01/11/21 Time Patient Seen: 07:40 History of Present Condition Chief complaint: Labor & Delivery : 1 Para: 0 Estimated Date of Delivery: 01/09/21 Estimated Gestational Age (weeks): 40w2d Narrative: Brad Price is a 20 year old at 40w2d who presented with regular painful contractions. The pt reports that she started having contractions last night around 10pm. They tapered off, and then intensified again. She denies any vaginal bleeding or LOF. She has been feeling her baby move regularly. History of Present care: good care, initiated at week # (8) and pounds weight gain (80) Dating criteria: LMP confirmed by 1st trimester US Ultrasounds: normal 1st trimester US and normal mid trimester US Obstetrical complications: none Medical complications: psychiatric (depression with brief inpatient hospitalization, on sertraline) Preadmission Labs Blood type: O (+) positive -: Antibody screen: negative, GBS status: negative, HBsAG: negative, HIV: negative and RPR/VDLR: negative -: Rubella: immune and Varicella: immune HCT: 35.5 HCAB: negative Quad screen: Normal 1 hr GTT: 102 Evaluation Evaluation Baseline heart rate: 130 Variability: Moderate (11-25) monitor accelerations: Present Monitor Decelerations: Absent Contraction Frequency (minutes): 4 Uterine Contraction Intensity: Strong/Firm Status: Category l Cervical dilation (cm): 5 Cervical effacement (%): 90 station: 0 [facility] Medical History Seasonal allergies (~2018) Swimmer's ear (~2005) Traumatic rupture of left ear drum, initial encounter (~2018) Surgical History [place] teeth extracted (~2017) Family History Mother Juan disease Raynauds disease Father No problems noted. 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 ) butch/alevism: Non-uatsdin special butch needs: No seatbelt use: always do you feel safe at home: No Smoking Status: Never smoker second hand exposure: No alcohol intake: never substance use type: does not use during the past year weight has: remained stable well-balanced diet: daily or most days daily servings fruits/ve-4 caffeine: Yes (1 cup a day. ) eating out: rarely or never Type(s) of exercise: walking and regular exercise frequency: daily duration: 30-45 minutes/day Meds Home Medications and Allergies Home Medications Medication Instructions Recorded Confirmed Type prenat.vits,claudio,ync-wqfi-xikrn 1 tab PO DAILY 05/31/20 01/11/21 History pyridoxine (vitamin B6) 25 mg 25 mg PO DAILY 05/31/20 01/11/21 History tablet breast pump #1 ea 10/29/20 01/11/21 Rx sertraline 25 mg tablet 25 mg PO DAILY #30 tab 10/29/20 01/11/21 Rx Allergies Allergy/AdvReac Type Severity Reaction Status Date / Time Sulfa (Sulfonamide Allergy Verified 10/16/20 19:54 Antibiotics) lactose AdvReac Intermediate nausea, Verified 10/16/20 19:54 gas, indigestion Exam Const General: cooperative, healthy appearing and comfortable Orientation: alert, awake and oriented x3 Resp Effort & Inspection: normal respiratory effort Auscultation: clear to auscultation bilaterally Cardio Rate: regular rate Rhythm: regular rhythm Heart Sounds: S1 normal, S2 normal and no murmurs GI Inspection: non-distended Palpation: soft and No tender Other: gravid Presentation: vertex Extrem General: no clubbing, cyanosis or edema Objective Labs Result Diagrams: 01/11/21 06:20 Labs: Laboratory Results - last 24 hr 01/11/21 01/11/21 01/11/21 06:20 06:20 06:20 WBC 13.2 H RBC 4.36 Hgb 10.8 L Hct 35.4 L MCV 81.1 MCH 24.8 L MCHC 30.6 RDW 16.7 H Plt Count 276 Neut % (Auto) 78.3 H Lymph % (Auto) 13.2 L [place] % (Auto) 6.3 Eos % (Auto) 1.4 L Baso % (Auto) 0.8 Neut # (Auto) 02200 H Lymph # (Auto) 1700 [place] # (Auto) 800 Eos # (Auto) 200 Baso # (Auto) 100 U Random Total Protein Urine Creatinine Protein/Creatinin Ratio SARS-CoV-2 (PCR) Negative Blood Type O Positive Antibody Screen Negative 01/11/21 12:15 WBC RBC Hgb Hct MCV MCH MCHC RDW Plt Count Neut % (Auto) Lymph % (Auto) [place] % (Auto) Eos % (Auto) Baso % (Auto) Neut # (Auto) Lymph # (Auto) [place] # (Auto) Eos # (Auto) Baso # (Auto) U Random Total Protein 18 H Urine Creatinine 95.0 Protein/Creatinin Ratio 0.18 SARS-CoV-2 (PCR) Blood Type Antibody Screen Assessment and Plan Assessment and Plan Assessment and Plan narrative: 20yo G1PO at 40w2d here in active labor. GBS negative, Rh positive. complicated by severe depression with inpatient hospitalization, now stable on Sertraline. - Expectant management, anticipate - FHT reassuring - Epidural for pain control in place - GBS negative, no prophylaxis indicated
--- NOTE | 2021-01-11 17:27 | PM.OBPNLAB ---
Date/Time Date Patient Seen: 01/11/21 Time Patient Seen: 10:00 Pain Control Pain control: epidural Pelvic Exam Dilation (cm): 9 Effacement (%): 90 station: 0 Amniotic membrane status: Ruptured Comments: After informed consent, AROM performed with production of clear fluid. Contractions Monitor mode: External Contraction frequency (min): 4 Contraction intensity: Strong/Firm Status status: Category l Heart Rate Baseline: 130 Monitor Accelerations: Absent Monitor Decelerations: Absent Monitor Variability: Moderate Assessment and Plan Comments: 20yo at 40w2d here in active labor. FHT Category I however no recent accelerations and variability progressing to minimal. AROM performed with production of clear fluid to help advance labor. FHT improved after rupture, with accels present. - Expectant management, anticipate - Pt with cervical rim on right side. Will allow to labor down as long as FHT reassuring. - Epidural for pain control - GBS negative no prophylaxis needed - FHT reassuring
--- NOTE | 2021-01-11 17:30 | PM.OBPRVD ---
Labor & Delivery Delivery date: 01/11/21 Intrapartal Events: None Cervical ripening method: none Induction method: none Delivery augmentation: rupture of membranes Delivery monitor: external FHT Route of delivery: L&D Laceration Description: Perineal - 2nd Degree and Labial Delivery repair: vicryl and chromic Estimated blood loss (mL): 200 Anesthesia Type: Epidural Complications: None Narrative: PROCEDURE: at 40w2d presented in active labor and was admitted to Labor and Delivery. The patient progressed through the 1st stage over 4.5 hours. Pain was controlled with an epidural. AROM was performed with production of clear fluid. The patient progressed through the 2nd stage over 2 hours and delivered a viable male infant with APGARs 8/9 at 13:02 via without complications. Nuchal cord x 1 was reduced at the perineum. Meconium was noted at the time of delivery, but the baby had a spontaneous cry immediately after delivery. The cord was clamped and cut after it stopped pulsating. The perineum and vagina were inspected with 2nd degree perineal laceration repaired with 2-O Vicryl, and left labial laceration repaired with 3-O Chromic. PREPROCEDURE DIAGNOSIS: Intrauterine at 40w2d Depression GBS negative RH positive POSTPROCEDURE DIAGNOSIS: Intrauterine at 40w2d, delivered Same as preprocedure Jet Baby 1: gender: Male Presentation: vertex Position: Left Occiput Anterior Placenta delivery description: Spontaneous Cord Vessel Description: 3 Vessels and Nuchal Cord (reduced at the perineum) score (1 min): 8 score (5 min): 9 weight: 8 lb 1.455 oz Plan for aftercare: Routine care
[2021-01-12] MEDS: ACETAMINOPHEN 325 MG TABLET 650 MG PO (07:28)
[2021-01-12] MEDS: IBUPROFEN 600 MG TABLET PO (07:28)
[2021-01-12] MEDS: SERTRALINE 50 MG TABLET 25 MG PO (09:12)
[2021-01-12] MEDS: DOCUSATE 100 MG CAPSULE PO (09:12)
[2021-01-12] MEDS: FERROUS SULFATE 325 MG TABLET PO (09:12)
[2021-01-12] MEDS: PRENATAL VIT,CALC/IRON/FOLIC 1 TABLET 1 TAB PO (09:13)
--- NOTE | 2021-01-12 11:03 | P.DS_ITS ---
Discharge Providers Provider Date of admission: 01/11/21 05:48 Discharge Date: 01/12/21 Consults: 01/12/21 13:58 Consult to Finish Remover Routine Comment: Discharge provider: Ericka Rivera MD Summary Hospital Course Date Patient Seen: 01/12/21 Time Patient Seen: 11:12 Diagnoses: 40w2d gestation GBS negative Rh positive Depression Hospital Course: The patient presented in active labor. She received an epidural for pain control. AROM was performed with production of clear fluid. She progressed to complete and had spontaneous vaginal delivery of a viable baby boy at 1:02 p.m. on 11/24. There was meconium present at delivery and a nuchal cord that was reduced at the perineum. The patient had a second-degree perineal and left labial laceration repaired. She tolerated delivery well. , there were no complications. At the did time of discharge she was voiding, ambu lating, passing flatus without difficulty. Her lochia was decreasing appropriately. Her pain was well controlled. She was breast-feeding with good latch. She will follow up in clinic in 6 weeks for check. She desires the Mirena IUD for contraception. Peripartum Data Delivery Method: Natural Vaginal Laceration Description: Perineal - 2nd Degree and Labial Episiotomy description: None Procedures: Spontaneous vaginal delivery complications: none [place] 1: Gender: Male Discharge Diagnosis (1) Spontaneous vaginal delivery: Status: Acute (2) Depression: Status: Acute Status at Discharge Cognitive/behavioral status at discharge: oriented Functional status at discharge: independent ambulation Overall status at discharge: patient is progressing back to baseline Time Spent with Patient Time attestation: Total time spent providing and/or coordinating discharge services: Objective Labs Result Diagrams: 01/11/21 06:20 Labs: Laboratory Results - last 24 hr 01/11/21 12:15 U Random Total Protein 18 H Urine Creatinine 95.0 Protein/Creatinin Ratio 0.18 Exam Narrative Exam Narrative: Gen: NAD, sitting comfortably in bed, appears well CV: RRR, no murmurs Resp: clear to auscultation bilaterally Abd: soft, appropriately tender, fundus firm and below the umbilicus, nondistended Ext: no edema Discharge Plan Discharge Plan Patient Disposition: Home Discharge orders & Medications Prescriptions: New acetaminophen 325 mg Tablet 650 mg PO Q6HR PRN (Reason: Pain, Mild (1-3)) Qty: 30 RF: 0 ferrous sulfate 325 mg (65 mg iron) Tablet 325 mg PO DAILY Qty: 30 RF: 0 docusate sodium 100 mg Capsule 100 mg PO DAILY Qty: 30 RF: 0 ibuprofen 600 mg Tablet 600 mg PO Q6HR PRN (Reason: Pain, Mild (1-3)) Qty: 30 RF: 0 Continued sertraline 25 mg tablet 25 mg PO DAILY Qty: 30 RF: 2 (DME) breast pump Device See Rx Instructions .ROUTE .MEDSUPPLY Qty: 1 RF: 0 prenat.vits,claudio,[id number] Tablet 1 tab PO DAILY RF: 0 pyridoxine (vitamin B6) 25 mg tablet 25 mg PO DAILY RF: 0 Follow up/Referrals: Ericka Rivera MD [Physician] - 6 Weeks Diet/Activity/Treatments Diet: Diet as Tolerated and Regular Skin/Wound/Dressing Care Report to your healthcare provider any signs of infection, such as:: chills, fever, increased pain and unusual drainage Visit Report/Discharge Packet Instructions: DI for Labor and Delivery, Vaginal Stand Alone Forms: Discharge: Care Visit Report Forms: Patient Portal/API, Stroke Signs & Symptoms
== END 2021-01-12 12:29 | disposition home or self-care (01) | DRG 807 ==
PROVIDERS: Admitting Provider Family Medicine; Referring Provider Family Medicine; Visit Provider Family Medicine
DX: O99.344 Other mental disorders complicating childbirth (principal); Z37.0 Single live birth; Z3A.40 40 weeks gestation of pregnancy; F32.9 Major depressive disorder, single episode, unspecified; O69.81X0 Labor and delivery complicated by cord around neck, without compression, not applicable or unspecified; O70.1 Second degree perineal laceration during delivery
CPT/HCPCS: 01967; 36415; 59050; 59400; 82570; 84156; 85025; 86850; 86900; 86901; 87635; C9803; G0379; J2590

== ENCOUNTER → 2021-07-22 08:40 | Outpatient (CLI) | payer OTHER, SELFPAY ==
--- NOTE | 2021-07-22 | DI.US.S_ITS ---
PROCEDURE: US RENAL COMPLETE INDICATIONS: CHRONIC UTI TECHNIQUE: Real-time scanning was performed of the kidneys and bladder, with image documentation. COMPARISON: None. FINDINGS: Kidneys: Kidneys are normal in size. Right kidney measures 12.1 cm long; left kidney measures 13.6 cm long. Right renal cortical thickness is 1.6 cm; left renal cortical thickness is 2.1 cm. Renal cortical echotexture is normal. No hydronephrosis or nephrolithiasis. No suspicious solid mass lesions. Bladder: Pre-void bladder volume is 69 mL. Post-void residual is 0 mL. Pre-void images demonstrate no intraluminal masses or stones. On pre-void images, neither ureteral jets are noted with color Doppler interrogation. (Of note, ureteral jets may not be detectable in up to 25% of cases due to insufficient differences in specific gravity between ureteral and bladder urine). Miscellaneous: No free pelvic fluid. IMPRESSION: Normal renal ultrasound exam. Dictated by: Andrés Thornton M.D. on 07/23/2021 at 17:31 Approved by: Andrés Thornton M.D. on 07/24/2021 at 12:05
== END ==
PROVIDERS: Referring Provider Urology; Visit Provider Urology
DX: Z09 Encounter for follow-up examination after completed treatment for conditions other than malignant neoplasm (principal); Z87.440 Personal history of urinary (tract) infections; Z87.39 Personal history of other diseases of the musculoskeletal system and connective tissue
CPT/HCPCS: 76770